=== PATIENT | female | born 1995 | race Caucasian/White ===

== ENCOUNTER 2019-09-22 08:00 | Emergency (ER) | payer OTHER ==
--- NOTE | 2019-09-22 09:18 | ER Document Report ---
ED General - General Chief Complaint: Pelvic Pain Stated Complaint: PELVIC PAIN Time Seen by Provider: 09/22/19 09:03 Notes: 21-year-old female history ovarian cyst right side "as big as a grapefruit" on ultrasound recently presents with worsening right pelvic pain since yesterday worse with certain movements better with pressure, positive positional. No nausea no vomiting no discharge no bleeding. Positive dyspareunia lately. She started control. Past Medical History - General Information source: Patient - Social History Smoking Status: Current Every Day Smoker Smoking Education Provided: Yes - The patient ED visit today was directly related to their abuse of tobacco. Family History: Reviewed & Not Pertinent Patient has homicidal ideation: No Review of Systems - Review of Systems Notes: REVIEW OF SYSTEMS GEN: Denies fever, chills, weight loss ENT: Denies sore throat, nasal discharge, ear pain EYES: Denies blurry vision, eye pain, discharge CV: Denies chest pain, palpitations, edema RESP: Denies cough, shortness of breath, wheezing GI: D HPI MSK: Denies joint pain/swelling, edema, SKIN: Denies rash, skin lesions LYMPH: Denies swollen glands/lymph nodes NEURO: Denies headache, focal weakness or numbness, dizziness PSYCH: Denies depression, suicidal or homicidal ideation PHYSICAL EXAMINATION General: No acute distress, well-nourished Head: Atraumatic, normocephalic ENT: Mouth normal, oropharynx moist, no exudates or tonsillar enlargement Eyes: Conjunctiva normal, pupils equal, lids normal Neck: No JVD, supple, no guarding CVS: Normal rate, regular rhythm, no murmurs Resp: No resp distress, equal and normal breath sounds bilaterally GI: Abdominal tenderness in lower abdomen Ext: No deformities, no edema, normal range of motion in upper and lower ext Back: No CVA or midline TTP Skin: No rash, warm Lymphatic: No lymphadeopathy noted Neuro: Awake, alert. Face symmetric. GCS 15. Physical Exam - Vital signs Vitals: Temp Pulse Resp BP Pulse Ox 98.7 F 99 16 121/58 L 100 09/22/19 08:10 09/22/19 08:10 09/22/19 08:10 09/22/19 08:10 09/22/19 08:10 Course - Re-evaluation Re-evalutation: 09/22/19 15:06 Ovarian cyst. Rupture versus torsion Doubt PID Ultrasound shows cyst with good flow about the same size this patient was told that it was so likely symptomatic cyst. Better with Toradol Labs are unrevealing The patient be discharged home with continued NSAID use to follow-up with women's health and was given torsion precautions I have discussed with the patient there likely diagnosis, aftercare plan, follow-up plans and my usual and customary return precautions. They verbalized understanding of this. Harge - Vital Signs Vital signs: Temp Pulse Resp BP Pulse Ox 98.7 F 67 17 111/57 L 98 09/22/19 11:21 09/22/19 11:21 09/22/19 11:21 09/22/19 11:21 09/22/19 11:21 - Laboratory Result Diagrams: 09/22/19 09:24 09/22/19 09:24 Laboratory results interpreted by me: 09/22/19 09/22/19 09:24 09:24 Hgb 11.5 L Hct 33.3 L RDW 16.2 H Lymph % (Auto) 6.8 L Absolute Neuts (auto) 8.4 H Seg Neutrophils % 84.2 H Sodium 134.7 L Chloride 108 H Anion Gap 4 L - Diagnostic Test Radiology reviewed: Image reviewed, Reports reviewed Discharge - Discharge Clinical Impression: Right ovarian cyst Condition: Good Disposition: HOME, SELF-CARE Instructions: Ovarian Cyst ([facility]), Pelvic Pain ([facility]) Additional Instructions: Take ibuprofen 3 tablets or 60 mg every 6 hours [id number] for pain. Hot packs as needed. If you develop worsening pain nausea vomiting or fever return immediately to the ER. Otherwise follow-up with your women's health provider.
[2019-09-22 09:44] LABS: ABSOLUTE EOSINOPHILS # (AUTO) 0.1 10^3/uL (0.0-0.6); ABSOLUTE LYMPHOCYTES (AUTO) 0.7 10^3/uL (0.5-4.7); ABSOLUTE MONOCYTES (AUTO) 0.8 10^3/uL (0.1-1.4); ABSOLUTE NEUT (AUTO) 8.4 10^3/uL (1.7-8.2); BASOPHILS % (AUTO) 0.5 % (0-2); EOSINOPHILS % (AUTO) 0.6 % (0-6); HEMATOCRIT 33.3 % (36.0-47.0); HEMOGLOBIN 11.5 g/dL (12.0-15.5); LYMPHOCYTES % (AUTO) 6.8 % (13-45); MEAN CORPUSCULAR HEMOGLOBIN 30.3 pg (27.0-33.4); MEAN CORPUSCULAR HGB CONC 34.4 g/dL (32.0-36.0); MEAN CORPUSCULAR VOLUME 88 fl (80-97); MONOCYTES % (AUTO) 7.9 % (3-13); PLATELET COUNT 256 10^3/uL (150-450); RED BLOOD COUNT 3.79 10^6/uL (3.72-5.28); RED CELL DISTRIBUTION WIDTH 16.2 % (11.5-14.0); SEGMENTED NEUTROPHILS % (AUTO) 84.2 % (42-78); TOTAL CELLS COUNTED % (AUTO) 100 %
[2019-09-22 10:06] LABS: BLOOD UREA NITROGEN 7 mg/dL (7-20); CALCIUM 8.9 mg/dL (8.4-10.2); GLUCOSE 91 mg/dL (75-110); POTASSIUM 4.3 mmol/L (3.6-5.0)
[2019-09-22 10:12] LABS: ANION GAP 4 (5-19); CARBON DIOXIDE 23 mmol/L (22-30); CHLORIDE 108 mmol/L (98-107)
--- NOTE | 2019-09-22 10:27 | RADIOLOGY REPORT (SQ) ---
EXAM DESCRIPTION: U/S NON OB PEL W/DOPPLER IMAGES COMPLETED DATE/TIME: 09/22/2019 10:11 am REASON FOR STUDY: r cyst, r/o torsion COMPARISON: None. TECHNIQUE: Dynamic and static grayscale images acquired of the pelvis via transabdominal approach an d recorded on PACS. Additional selected color Doppler and spectral images recorded. LIMITATIONS: None. FINDINGS: UTERUS: Contour normal. No mass. ENDOMETRIAL STRIPE: No focal or generalized thickening. No masses. CERVIX: No nabothian cysts. RIGHT OVARY AND DOPPLER: Normal size. 10 cm cyst with internal echoes. Normal arterial vascular flow without evidence for torsion. LEFT OVARY AND DOPPLER: Ovary not visualized. FREE FLUID: None noted. OTHER: No other significant finding. IMPRESSION: 10 cm cyst right ovary. TECHNICAL DOCUMENTATION: JOB ID: [id number] 2010 [employer]- All Rights Reserved Rev-07/17 Reading location - IP/workstation name: [email or web address]
[2019-09-22] MEDS ORDERED: KETOROLAC TROMETHAMINE INJ/PF 30 MG/1 ML SDV IV ONE (10:44)
[2019-09-22 11:13] LABS: APPEARANCE,URINE CLEAR; BILIRUBIN,URINE NEGATIVE (NEGATIVE); COLOR,URINE YELLOW; GLUCOSE, URINE NEGATIVE (NEGATIVE); KETONES,URINE NEGATIVE (NEGATIVE); LEUKOCYTE ESTERASE,URINE NEGATIVE (NEGATIVE); NITRITE,URINE NEGATIVE (NEGATIVE); PROTEIN,URINE NEGATIVE (NEGATIVE); URINE SPECIFIC GRAVITY 1.013; UROBILINOGEN,URINE NEGATIVE mg/dL (<2.0)
[2019-09-22] MEDS ORDERED: ONDANSETRON ODT 4 MG TAB (6 TAB/ER DISP) PO PRN (11:29)
[2019-09-22 11:32] VITALS: BP 111/57
== END 2019-09-22 11:32 | disposition home or self-care (01) ==
LOC: ER 08:00
DX: N83.201 Unspecified ovarian cyst, right side (principal); N94.10 Unspecified dyspareunia; R10.2 Pelvic and perineal pain; F17.200 Nicotine dependence, unspecified, uncomplicated
CPT/HCPCS: 99284; 96374; 36415; 84702; 85025; 80048; 81001; 76856; 93976; J1885

== ENCOUNTER 2019-10-10 05:16 | Day surgery (SDC) | payer OTHER ==
[2019-10-06 12:42] LABS: HEMATOCRIT 35.3 % (36.0-47.0); HEMOGLOBIN 11.8 g/dL (12.0-15.5); MEAN CORPUSCULAR HEMOGLOBIN 29.9 pg (27.0-33.4); MEAN CORPUSCULAR HGB CONC 33.5 g/dL (32.0-36.0); MEAN CORPUSCULAR VOLUME 89 fl (80-97); PLATELET COUNT 250 10^3/uL (150-450); RED BLOOD COUNT 3.95 10^6/uL (3.72-5.28); RED CELL DISTRIBUTION WIDTH 16.8 % (11.5-14.0); WHITE BLOOD COUNT 6.1 10^3/uL (4.0-10.5)
[2019-10-06 12:48] LABS: APPEARANCE,URINE CLEAR; BILIRUBIN,URINE NEGATIVE (NEGATIVE); COLOR,URINE YELLOW; GLUCOSE, URINE NEGATIVE (NEGATIVE); KETONES,URINE NEGATIVE (NEGATIVE); LEUKOCYTE ESTERASE,URINE NEGATIVE (NEGATIVE); NITRITE,URINE NEGATIVE (NEGATIVE); PROTEIN,URINE NEGATIVE (NEGATIVE); URINE SPECIFIC GRAVITY 1.016; UROBILINOGEN,URINE NEGATIVE mg/dL (<2.0)
[2019-10-06 13:05] LABS: ANION GAP 8 (5-19); BLOOD UREA NITROGEN 6 mg/dL (7-20); CALCIUM 8.9 mg/dL (8.4-10.2); CARBON DIOXIDE 21 mmol/L (22-30); CHLORIDE 108 mmol/L (98-107); GLUCOSE 85 mg/dL (75-110); POTASSIUM 4.3 mmol/L (3.6-5.0)
[~2019-10-10 05:16] MED LIST: CEFAZOLIN 1 GM/D5W RTU 1 GM/50 ML RTUPB IV ONE; CEFAZOLIN 1 GM/D5W RTU 1 GM/50 ML RTUPB IV PRN; LACTATED RINGERS 1000 ML IV PRN
[2019-10-10] MEDS ORDERED: LIDOCAINE 2% INJ-PF (100 MG/5 ML) SYRINGE ONE (06:58)
[2019-10-10] MEDS ORDERED: KETOROLAC TROMETHAMINE 60 MG/2 ML SDV ONE (06:58)
[2019-10-10] MEDS ORDERED: ONDANSETRON HCL INJ/PF 4 MG/2 ML SDV ONE (06:59)
[2019-10-10] MEDS ORDERED: DEXAMETHASONE SOD PHOSPHATE INJ 4 MG/1 ML VIAL ONE (06:59)
[2019-10-10] MEDS ORDERED: PROPOFOL INJ 200 MG/20 ML VIAL IV ONE (06:59)
[2019-10-10] MEDS ORDERED: MIDAZOLAM 2 MG/2 ML INJ ONE (06:59)
[2019-10-10] MEDS ORDERED: FENTANYL CITRATE INJ/PF 100 MCG/2 ML AMPUL ONE ×2 (06:59→08:41)
[2019-10-10] MEDS ORDERED: BUPIVACAINE INJ/PF LIPOSOME/PF 266 MG/20 ML SDV ONE (07:06)
[2019-10-10] MEDS ORDERED: FENTANYL CITRATE INJ/PF 100 MCG/2 ML AMPUL IV PRN ×3 (07:40)
[2019-10-10] MEDS ORDERED: MEPERIDINE HCL/PF INJ 25 MG/1 ML DISP.SYRIN IV PRN (07:40)
[2019-10-10] MEDS ORDERED: DIPHENHYDRAMINE HCL 50 MG/ML VIAL IV PRN (07:40)
[2019-10-10] MEDS ORDERED: MORPHINE SULFATE 10 MG/ML INJ IV PRN (07:40)
[2019-10-10] MEDS ORDERED: PROMETHAZINE HCL INJ 25 MG/1 ML VIAL IV PRN (07:40)
--- NOTE | 2019-10-10 08:46 | Operative Report ---
Operative Report DATE OF SURGERY: 10/10/19 PREOPERATIVE DIAGNOSIS: 10 cm ovarian mass POSTOPERATIVE DIAGNOSIS: 10 cm left ovarian endometrioma OPERATION: L ovarian cystectomy SURGEON: JEREMIAH WALKER ANESTHESIA: GA TISSUE REMOVED OR ALTERED: ovarian endometrioma COMPLICATIONS: none ESTIMATED BLOOD LOSS: 25 ml INTRAOPERATIVE FINDINGS: 10 cm smooth walled ovarian endometrioma, normal uterus, normal right tube and ovary, normal left tube. A small serosal disruption of small bowel was noted and oversewn PROCEDURE: The patient has had a longstanding symptomatic ovarian mass with a groundglass appearance on ultrasound. No concerns about neoplasia were appreciated. She elected for operative intervention and the usual risks of bleeding infection anesthesia and damage to other organs and tissues just discussed with the patient understood. Adequate anesthesia the catheter was placed in via the small mini laparotomy laparotomy incision was made. This extended to subsequent fascia and fascia peritoneum was then without difficulty and the lesion was encountered and brought in the operative field. In this process a small superficial serosal disruption was noted of small bowel and tagged. During examination the was evident that this was a endometrioma and attempts to to do a cystectomy or con founded by the adherent adherent cyst wall. At this point the bulk of the ovarian mass was removed and it was easier to effect a partial cystectomy at this time and the ovary was then oversewn with interrupted 3-0 Vicryl with good hemostasis noted. The ovary was essentially saved nearly in toto. The small bowel was then reinforced on the serosal area with interrupted 3-0 Vicryl. The abdomen was copiously irrigated the rectus fascia was closed with #1 PDS suture subcuticular stitch of 3-0 plain gut was placed Exparel was used in subcutaneous area and skin proximal skin dean completion procedure all sponge and counts correct
[2019-10-10] MEDS ORDERED: OXYCODONE-ACETAMINOPHEN 5-325 MG TABLET PO PRN (08:54)
[2019-10-10] MEDS ORDERED: MORPHINE SULFATE 10 MG/ML INJ INJ PRN ×2 (08:55)
[2019-10-10] MEDS ORDERED: PROMETHAZINE HCL INJ 25 MG/1 ML VIAL IM PRN (08:56)
[2019-10-10] MEDS ORDERED: MORPHINE SULFATE 10 MG/ML INJ ONE (08:58)
[2019-10-10] MEDS ORDERED: OXYCODONE-ACETAMINOPHEN 5-325 MG TABLET ONE (09:36)
[2019-10-10] MEDS ORDERED: NEOSTIGMINE METHYLSULFATE 10 MG/10 ML VIAL ONE (09:40)
[2019-10-10] MEDS ORDERED: GLYCOPYRROLATE 1 MG/5 ML VIAL ONE (09:40)
[2019-10-10] MEDS ORDERED: NORMAL SALINE INJ/PF 0.9% 10 ML SDV ONE (09:40)
[2019-10-10] MEDS ORDERED: DIPHENHYDRAMINE HCL 50 MG/ML VIAL ONE (09:40)
[2019-10-10 11:18] VITALS: BP 124/80
[2019-10-10] MEDS ORDERED: IBUPROFEN 800 MG TABLET PO SCH (14:00)
== END 2019-10-10 10:35 | disposition home or self-care (01) ==
LOC: OROUT 05:16
PROVIDERS: ATTEND Specialist
DX: N83.202 Unspecified ovarian cyst, left side (principal); N80.1 Endometriosis of ovary; Z03.818 Encounter for observation for suspected exposure to other biological agents ruled out
CPT/HCPCS: 86900; 86901; 36415; 86850; 85027; 87635; 81025; 80048; 81001; 88305 ×2; 58925; J2250; J0690; J1100; J1885; J3010; J2001; J2270; J2405; J2704; C9290; C9803; 840; C1758; J1200; J2710; J3490